=== PATIENT | female | born 1985 | race African-American/Black ===

== ENCOUNTER 2017-10-27 10:16 | Emergency (ER) | payer MEDICAID, OTHER ==
[~2017-10-27] VITALS: Ht 172.7 cm; Wt 50.0 kg
[2017-10-27] MEDS ORDERED: SODIUM CHLORIDE 0.9% 1000ML BAG (SEPSIS BOLUS) IV ONE (12:00)
[2017-10-27] MEDS ORDERED: DEXAMETHASONE 10 MG/ML VIAL IV ONE (12:00)
[2017-10-27] MEDS ORDERED: CLINDAMYCIN 600 MG in DEXTROSE 5% WATER 50 ML IV ONE (12:00)
[2017-10-27] MEDS ORDERED: KETOROLAC 30MG/ML VIAL IV ONE (12:00)
[2017-10-27 12:33] LABS: BASOPHILS % 0.3 % (0.0-2.0); EOSINOPHILS % 0.4 % (0.0-5.0); HEMATOCRIT. 34.9 % (36.0-48.0); HEMOGLOBIN. 11.3 g/dL (12.0-16.0); LYMPHOCYTES % 22.6 % (20.0-50.0); MEAN CORPUSCULAR HEMOGLOBIN 25.9 pg (28.0-32.0); MEAN CORPUSCULAR VOLUME 79.7 fL (81.0-99.0); MEAN PLATELET VOLUME 7.1 fl (7.4-10.4); MONOCYTES % 8.6 % (2.0-8.0); NEUTROPHILS % 68.1 % (40.0-76.0); PLATELET 311 x1000/uL (130-400); RED BLOOD CELL COUNT 4.38 mill/uL (4.2-5.4); RED CELL DISTRIBUTION WIDTH 14.2 % (11.6-14.6)
[2017-10-27 12:38] LABS: CHLORIDE 106 mEq/L (98-107)
[2017-10-27 12:40] LABS: INR 1.2; PROTHROMBIN TIME 12.7 sec (9.4-11.6)
[2017-10-27 13:27] LABS: HCG SCREEN NEGATIVE
[2017-10-27] MEDS ORDERED: CLINDAMYCIN 600MG PREMIX 50 ML IV SCH (13:30)
[2017-10-27] MEDS ORDERED: VANCOMYCIN 1 G PREMIX 200 ML IV SCH (13:45)
[2017-10-27] MEDS ORDERED: IOHEXOL-300 100 ML BOTTLE ONE (14:09)
[2017-10-27 16:36] VITALS: BP 103/74
== END 2017-10-27 16:42 | disposition home or self-care (01) ==
LOC: ER 12:07 → CANBEDREQ 18:45
DX: J02.9 Acute pharyngitis, unspecified (principal); E86.0 Dehydration; F17.200 Nicotine dependence, unspecified, uncomplicated; R79.1 Abnormal coagulation profile
CPT/HCPCS: 36415; 70491; 80053; 83605; 84703; 85025; 85610; 87040; 87430; 93005; 96365; 96367; 96375; 99285; J1100; J1885; J3370; J3490; J7030; Q9967; J7060

== ENCOUNTER 2018-03-06 16:56 | Emergency (ER) | payer MEDICAID ==
[~2018-03-06] VITALS: Ht 175.3 cm; Wt 49.0 kg
[2018-03-06] MEDS: SODIUM CHLORIDE 0.9% 1,000 ML IV ONE (18:43)
[2018-03-06 19:39] VITALS: BP 99/60
[2018-03-06] MEDS: IBUPROFEN 600MG TABLET PO ONE (19:39)
== END 2018-03-06 19:41 | disposition home or self-care (01) ==
LOC: ER 16:56
DX: B34.9 Viral infection, unspecified (principal); F17.200 Nicotine dependence, unspecified, uncomplicated
CPT/HCPCS: 81025; 87070; 87430; 87804; 99284; J7030; Z7610

== ENCOUNTER 2022-09-11 13:14 | Emergency (ER) | payer MEDICAID ==
[~2022-09-11] VITALS: Ht 167.6 cm; Wt 50.0 kg
[2022-09-11 13:16] VITALS: BP 100/80
[2022-09-11] MEDS ORDERED: FAMOTIDINE 20MG/2ML VIAL IV STA (13:22)
[2022-09-11] MEDS ORDERED: HALOPERIDOL LACTATE 5MG/ML VIAL IM ONE (13:30)
[2022-09-11] MEDS ORDERED: SODIUM CHLORIDE 0.9% 1,000 ML IV ONE (13:30)
== END 2022-09-11 16:52 | disposition home or self-care (01) ==
LOC: ER 13:14
DX: R10.13 Epigastric pain (principal); R11.2 Nausea with vomiting, unspecified
CPT/HCPCS: 71045; 76705; 96372; 99285; J1630; J7030